=== PATIENT | male | born 1995 | race Two or more races ===

== ENCOUNTER 2024-09-10 14:05 | Emergency (ER) | payer OTHER | END 2024-09-10 15:17 | disposition home or self-care (01) | LOC: MW.ED 14:05 | DX: J02.0 Streptococcal pharyngitis (principal); F17.210 Nicotine dependence, cigarettes, uncomplicated; Z75.8 Other problems related to medical facilities and other health care; Z79.899 Other long term (current) drug therapy | CPT/HCPCS: 87428-QW; 87651; 99283 ==